=== PATIENT | female | born 1940 | race Caucasian/White ===

== ENCOUNTER 2019-08-04 16:15 | Emergency (ER) | payer MEDICARE ==
[~2019-08-04] VITALS: Ht 165.1 cm; Wt 57.4 kg
[~2019-08-04 16:15] MED LIST: BACLOFEN20 MG; CRESTOR5 MG; LISINOPRIL-HCT1 EACH
[2019-08-04] MEDS ORDERED: GABAPENTIN 100100 MG PO (16:29)
[2019-08-04] MEDS ORDERED: SYNTHROID100 MC1 PO (16:29)
[2019-08-04] MEDS ORDERED: DUREZOL5 ML OPHTHALMIC (16:29)
[2019-08-04] MEDS ORDERED: FLOXIN (16:30)
[2019-08-04] MEDS ORDERED: REQUIP 1 MG TABL1 M1 PO (16:30)
[2019-08-04] MEDS ORDERED: TRAMADOL 50 MG50 MG PO (16:30)
[2019-08-04] MEDS ORDERED: TYLENOL325 MG PO (16:31)
[2019-08-04] MEDS ORDERED: NITROGLYCERIN0.4 MG SUBLING (16:31)
[2019-08-04] MEDS ORDERED: ONDANSETRON HCL4 M2 PO (16:31)
[2019-08-04] MEDS ORDERED: PERCOCET 7.5-31 EACH PO (16:31)
[2019-08-04] MEDS ORDERED: ZANTAC 150MG T150 MG PO (16:31)
[2019-08-04 17:01] LABS: HEMATOCRIT 40.4 % (37.0-47.0); HEMOGLOBIN 13.7 gm/dL (12.0-15.0); MCH 30.2 pg (26.0-34.0); MCHC 33.9 g/dL (28.0-37.0); MPV 10.2 fl. (7.2-11.1); NUCLEATED RBCS 0 /100WBC; PLATELET COUNT* 285 thou/uL (150-400); RBC 4.55 mil/uL (4.20-5.00); RDW-CV 14.6 % (10.5-14.5); WBC 39.7 thou/uL (4.0-11.0)
[2019-08-04 17:10] LABS: CREATININE 0.8 mg/dL (0.6-1.3); POTASSIUM 4.3 mmol/L (3.5-5.1)
[2019-08-04 17:14] LABS: ALBUMIN 1.9 g/dL (3.4-5.0); TOTAL BILIRUBIN 1.4 mg/dL (<0.1-1.0); TOTAL PROTEIN 7.8 g/dL (6.4-8.2)
[2019-08-04 17:15] LABS: BE 4.1 mmol/L (-2 to +3); PCO2 43.8 mmHg (35.0-45.0); pH 7.437 (7.340-7.450)
[2019-08-04 17:20] LABS: PO2 55.2 mmHg (75.0-100.0)
[2019-08-04] MEDS ORDERED: OXYGEN MISCELL (17:34)
[2019-08-04] MEDS ORDERED: LEVAQUIN 750 M750 MG PO (17:34)
[2019-08-04 17:39] LABS: ABSOLUTE MONOCYTES 1.6 thou/uL (0.0-1.2); ABSOLUTE NEUTROPHILS 36.1 thou/uL (1.6-8.1); PLATELET ESTIMATE ADEQUATE
[2019-08-04 17:40] LABS: LARGE PLATELETS OCCASIONAL
[2019-08-04 18:10] VITALS: BP 119/65
== END 2019-08-04 18:31 | disposition home or self-care (01) ==
LOC: M.ERS 16:15
PROVIDERS: Personal Emergency Response Attendant
DX: J18.9 Pneumonia, unspecified organism (principal); F17.210 Nicotine dependence, cigarettes, uncomplicated; I10 Essential (primary) hypertension; M19.90 Unspecified osteoarthritis, unspecified site; F03.90 Unspecified dementia, unspecified severity, without behavioral disturbance, psychotic disturbance, mood disturbance, and anxiety; J44.9 Chronic obstructive pulmonary disease, unspecified; Z86.73 Personal history of transient ischemic attack (TIA), and cerebral infarction without residual deficits; Z88.5 Allergy status to narcotic agent; Z88.8 Allergy status to other drugs, medicaments and biological substances